=== PATIENT | male | born 1970 | race Caucasian/White ===

== ENCOUNTER 2016-11-19 10:47 | Emergency (ER) | payer OTHER ==
[~2016-11-19] VITALS: Ht 182.9 cm; Wt 87.0 kg
[~2016-11-19 10:47] MED LIST: DARV PO; FLON0.053
[2016-11-19 10:49] VITALS: BP 157/83; PULSE 79; RESP 16; TEMP 99.2; O2SAT 96
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
== END 2016-11-19 13:06 | disposition home or self-care (01) ==
LOC: NEPK 10:47
DX: S92.515A Nondisplaced fracture of proximal phalanx of left lesser toe(s), initial encounter for closed fracture (principal); W22.09XA Striking against other stationary object, initial encounter; Y93.55 Activity, bike riding
CPT/HCPCS: 73630; 99283